=== PATIENT | male | born 1960 | race Caucasian/White ===

== ENCOUNTER 2020-07-17 18:09 | Emergency (ER) | payer OTHER ==
[~2020-07-17] VITALS: Ht 167.6 cm; Wt 70.3 kg
[2020-07-17] MEDS ORDERED: SYNTHROID (18:23)
[2020-07-17] MEDS ORDERED: SULF1TAB48 PO (19:13)
--- NOTE | 2020-07-17 20:30 | NUR ---
Patient discharged to home in stable condition. Written and verbal after care instructions given. Patient verbalizes understanding of instructions. Stressed follow up or return to ER for worsening s/s.
== END 2020-07-17 20:31 | disposition home or self-care (01) ==
LOC: ER 18:11
DX: L03.90 Cellulitis, unspecified (principal); E03.9 Hypothyroidism, unspecified; Z79.890 Hormone replacement therapy
CPT/HCPCS: 87070; A4663

== ENCOUNTER 2020-11-18 12:27 | Emergency (ER) | payer OTHER ==
[~2020-11-18] VITALS: Ht 167.6 cm; Wt 73.5 kg
[~2020-11-18 12:27] MED LIST: SULF1TAB48 PO; SYNTHROID
[2020-11-18] MEDS ORDERED: HALOPERIDOL LACTATE 5 MG/1 ML VIAL IM ONE (14:00)
[2020-11-18] MEDS ORDERED: LORAZEPAM 2 MG/1 ML VIAL IM ONE (14:00)
--- NOTE | 2020-11-18 17:11 | NUR ---
PT SEEN AND EVALUATED BY DR MCDONALD. GAME SHOW HOST CONSULT INITIATED.
[2020-11-18 17:13] VITALS: BP 117/82
== END 2020-11-18 17:14 | disposition home or self-care (01) ==
LOC: ER 12:27
DX: K74.60 Unspecified cirrhosis of liver (principal); Z60.2 Problems related to living alone
CPT/HCPCS: A4663